=== PATIENT | male | born 1960 | race Caucasian/White ===

== ENCOUNTER → 2025-01-27 08:44 | Outpatient (REF) | payer MEDICARE, OTHER, SELFPAY | LOC: RAD 08:44 | PROVIDERS: ATTENDING PHYSICIAN Surgery Vascular Surgery; FAMILY PHYSICIAN Family Medicine | DX: I77.9 Disorder of arteries and arterioles, unspecified (principal) | CPT/HCPCS: 75635; Q9967 ==

== ENCOUNTER → 2025-05-18 07:23 | Outpatient (REF) | payer MEDICARE, OTHER, SELFPAY | LOC: RAD 07:23 | PROVIDERS: ATTENDING PHYSICIAN Surgery Vascular Surgery; FAMILY PHYSICIAN Family Medicine | DX: I77.9 Disorder of arteries and arterioles, unspecified (principal) | CPT/HCPCS: 93922 ==